=== PATIENT | female | born 1940 | race Caucasian/White ===

== ENCOUNTER → 2018-06-07 | Outpatient (CLI) | payer MEDICARE, OTHER ==
[~2018-06-07] MED LIST: FENOFIBRATE145 MG PO; LEVOTHYROXINE75 MCG PO; ULTRAM50 MG PO
== END ==
LOC: MAMMO 08:54
PROVIDERS: ATTEND Family Medicine
DX: Z12.31 Encounter for screening mammogram for malignant neoplasm of breast (principal)
CPT/HCPCS: 77067

== ENCOUNTER → 2018-11-27 | Outpatient (CLI) | payer MEDICARE, OTHER ==
--- NOTE | 2018-11-27 12:05 | Diagnostic Imaging Report ---
EXAMINATION: SP LUMBAR, COMPLETE MIN 4VW INDICATION: Back pain COMPARISON: Report of CT lumbar spine of 11/13/2014, images not available for review. FINDINGS: No compression fracture. 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 Grade 1 anterolisthesis at L2-3 and L5-S1. Severe multilevel degenerative changes with disc space narrowing, osteophyte formation, and facet arthropathy. Surgical sutures overlie the lower pelvis at the midline. Nonobstructive bowel gas pattern. IMPRESSION: No acute fracture. Severe multilevel degenerative changes as above. Based on comparison with the report of the CT from 11/13/2014 (images not available for comparison) the anterolisthesis at L2-3 is likely new. Signed by: Olivia Rachel MD on 11/27/2018 12:02 PM
--- NOTE | 2018-11-27 12:56 | Diagnostic Imaging Report ---
Thyroid ultrasound CPT code: 71193 History: Thyroid nodule follow-up Comparison: None Findings: The thyroid echotexture is heterogeneous. Vascularity is normal. The right lobe measures 3.7 x 1.1 x 2.3 cm. The left lobe measures 3.8 x 0.8 x 1.4 cm. The isthmus measures 0.2 cm. Nodules (measurements are AP, transverse, craniocaudal): Right Lobe: 2.0 x 0.9 x 1.6 cm hyperechoic solid, wider than tall, smooth bordered nodule without internal calcifications previously reported to measure 2.1 x 1.2 x 1.4 cm. Left Lobe: Hypoechoic 0.8 x 0.2 x 0.5 cm solid, wider than tall, smooth bordered nodule at the lateral midpole without internal calcifications, previously reported to measure 1.1 x 0.4 x 0.8 cm. Hyperechoic 0.6 x 0.4 x 0.3 cm solid, wider than tall, smooth bordered inferior pole nodule, previously reported to measure 0.6 x 0.5 x 0.6 cm. Isthmus: No cystic mass or discrete solid nodule identified. Lymph Nodes: No cervical lymph nodes are identified. Parathyroids: Not visualized. IMPRESSION: 1. Right thyroid 2.0 x 0.9 x 1.6 cm hyperechoic solid, wider than tall, smooth bordered nodule without internal calcifications previously reported to measure 2.1 x 1.2 x 1.4 cm. (TI-RADS 3). 2. Hypoechoic 0.8 x 0.2 x 0.5 cm solid, wider than tall, smooth bordered nodule at the left thyroid lateral midpole without internal calcifications, previously reported to measure 1.1 x 0.4 x 0.8 cm. (TI-RADS 4) 3. Hyperechoic 0.6 x 0.4 x 0.3 cm solid, wider than tall, smooth bordered left inferior pole nodule, previously reported to measure 0.6 x 0.5 x 0.6 cm. (TI-RADS 3) RECOMMENDATIONS: Recommend continued follow-up at 1, 3 and 5 years from date of initial diagnosis). ACR glossary of thyroid rads TI-RADS 1: No focal lesion. TI-RADS 2: Not suspicious. TI-RADS 3: Mildly suspicious (recommend FNA is greater than or equal to 2.5 cm; follow-up at 1, 3, and 5 years if greater than or equal to 1.5 cm) TI-RADS 4: Moderately Suspicious (recommend FNA is greater than or equal to 1.5 cm; follow-up at 1, 2, 3, and 5 years) TI-RADS 5: Highly suspicious (recommend FNA is greater than or equal to 10 mm) TI-RADS 6: Biopsy-proven malignancy Signed by: Olivia Rachel MD on 11/27/2018 12:53 PM
== END ==
LOC: US 11:15
PROVIDERS: ATTEND Family Medicine
DX: E04.1 Nontoxic single thyroid nodule (principal); M54.5 Low back pain
CPT/HCPCS: 72110; 76536

== ENCOUNTER → 2019-09-25 | Outpatient (CLI) | payer MEDICARE, OTHER ==
--- NOTE | 2019-09-25 14:43 | Diagnostic Imaging Report ---
Thyroid Ultrasound Clinical Diagnosis: Hypothyroidism Comparison: 11/27/2018 Technique: Multiple images were submitted for interpretation. Multiple longitudinal and transaxial images were performed with a high frequency linear transducer. Report: The current examination was performed by different technologist and using a slightly different technique into evaluation and measurement of the thyroid and the nodules. That creates difficulty in accurate comparison. The thyroid gland is in general heterogeneous in echotexture. The vascularity is normal. The right lobe measures 3.1 x 1.1 x 2.0 cm. Previously it measured 3.7 x 1.1 x 2.3 cm. The left lobe measures 3.2 x 1.2 x 1.3 cm. Previously it measured 3.8 x 0.8 x 1.4 cm. The isthmus measures 2 mm. It is unchanged. Nodules: The measurements are cc, AP, transverse. A large nodule in the right lobe of the thyroid gland measures 20 x 9 x 14 mm. Previously 20 x 9 x 16 mm. It is solid, hyperechoic or isoechoic, taller than wide, smooth margins, no calcifications. It is unchanged in appearance. However on my estimate, it is TI-RADS 4. FNA is recommended. There is a nodule in the left lobe thyroid gland that measures 10 mm x 4 mm x 6 mm. Previously 8 x 2 x 5 mm. It is solid, hypoechoic, taller than wide, smooth margins, no calcification. It is TI-RADS 5. FNA is recommended. A nodule in the left lobe of the thyroid gland measures 6 x 5 x 4 mm. Previously 6 x 4 x 3 mm. There is almost completely solid, hyperechoic or isoechoic, taller than wide, smooth margins, no calcification. It is TI-RADS 4. No intervention or follow-up is recommended. Impression: Ultrasound of the thyroid gland with findings and recommendations as above. Signed by: Manny Lopez MD on 09/25/2019 5:05 PM
== END ==
LOC: US 12:02
PROVIDERS: ATTEND Family Medicine
DX: E03.9 Hypothyroidism, unspecified (principal)
CPT/HCPCS: 76536

== ENCOUNTER → 2019-10-26 | Outpatient (CLI) | payer MEDICARE, OTHER ==
--- NOTE | 2019-10-26 15:09 | Diagnostic Imaging Report ---
PROCEDURE: Ultrasound-guided thyroid FNA Procedural Personnel Attending physician(s): Olivia Rachel MD Fellow physician(s): None Resident physician(s): None Advanced practice provider(s): None Pre-procedure diagnosis: Right thyroid nodule Post-procedure diagnosis: Same Indication: Histopathologic diagnosis Previous biopsy of same target (QCDR): No Additional clinical history: None Complications: No immediate complications. IMPRESSION: Ultrasound-guided biopsy of right thyroid nodule. Plan: Specimen(s) sent for evaluation. PROCEDURE SUMMARY: - Percutaneous US-guided right thyroid biopsy - Additional procedure(s): None PROCEDURE DETAILS: Pre-procedure Reference imaging for biopsy target: Thyroid ultrasound 09/25/2019 Consent: Informed consent for the procedure including risks, benefits and alternatives was obtained and time-out was performed prior to the procedure. Preparation: The site was prepared and draped using maximal sterile barrier technique including cutaneous antisepsis. Anesthesia/sedation Level of anesthesia/sedation: No sedation Anesthesia/sedation administered by: Independent trained observer under attending supervision with continuous monitoring of the patient?s level of consciousness and physiologic status Total intra-service sedation time (minutes): NA Imaging prior to biopsy The patient was positioned supine. Initial ultrasound was performed. Biopsy target: - Maximal diameter (cm): 2 - Location: Right thyroid Other findings: None Biopsy Local anesthesia was administered. Under US guidance, the biopsy needle was advanced to the target and biopsy was performed. Coaxial needle: None Fine needle aspiration device: Chiba Fine needle size: [id number] Number of FNA specimens: 4 On-site biopsy touch preparation: Yes Additional sampling recommendations: None Preliminary assessment of sample adequacy: Adequate Needle removal The biopsy needle was removed and a sterile dressing was applied. Tract embolization: None Imaging following biopsy Immediate post-biopsy ultrasound was performed. Post-biopsy imaging findings: No hematoma Additional Details Additional description of procedure: None Equipment details: None Specimens removed: Biopsy samples as detailed above Estimated blood loss (mL): Less than 10 Standardized report: [id number] Attestation Signer name: Olivia Rachel MD I attest that I was present for the entire procedure. I reviewed the stored images and agree with the report as written. Signed by: Olivia Rachel MD on 10/26/2019 3:05 PM
--- NOTE | 2019-10-29 12:37 | NUR ---
attempted to make followup call from thyroid biopsy. no answer
== END ==
LOC: US 12:44
PROVIDERS: ATTEND Family Medicine
DX: E04.1 Nontoxic single thyroid nodule (principal)
CPT/HCPCS: 10005; 87635; 88172; 88173; 88305

== ENCOUNTER → 2021-02-10 | Outpatient (CLI) | payer MEDICARE | LOC: US 13:07 | PROVIDERS: ATTEND Family Medicine | DX: E04.1 Nontoxic single thyroid nodule (principal) | CPT/HCPCS: 76536 ==

== ENCOUNTER → 2022-02-12 | Outpatient (CLI) | payer MEDICARE, OTHER | LOC: US 10:41 | PROVIDERS: ATTEND Nurse Practitioner Family | DX: E04.1 Nontoxic single thyroid nodule (principal) | CPT/HCPCS: 76536 ==